=== PATIENT | male | born 1985 ===

== ENCOUNTER 2025-01-09 06:21 | Day surgery (SDC) | payer BC, SELFPAY | END 2025-01-09 10:01 | disposition home or self-care (01) | LOC: GI 06:21 | PROVIDERS: ATTENDING PHYSICIAN Internal Medicine Gastroenterology | DX: K62.5 Hemorrhage of anus and rectum (principal); K64.9 Unspecified hemorrhoids; K63.3 Ulcer of intestine; K63.89 Other specified diseases of intestine; K62.89 Other specified diseases of anus and rectum; K63.5 Polyp of colon | CPT/HCPCS: 45385; 45380; 88305 ==